=== PATIENT | female | born 1995 | race Hispanic/Latino ===

== ENCOUNTER 2017-06-04 21:38 | Emergency (ER) | payer BC ==
[~2017-06-04] VITALS: Ht 162.6 cm; Wt 68.0 kg
[2017-06-04] MEDS ORDERED: ONDANSETRON HCL INJ 2 MG/ML VIAL IV STA (22:05)
[2017-06-04] MEDS ORDERED: MORPHINE SULFATE 2 MG/ML SYR IV STA (22:05)
[2017-06-04 22:12] LABS: BILIRUBIN,URINE 1+ (NEGATIVE); COLOR,URINE YELLOW (YELLOW); KETONES,URINE NEGATIVE (NEGATIVE); LEUKOCYTE ESTERASE ,URINE NEGATIVE (NEGATIVE); NITRITE,URINE NEGATIVE (NEGATIVE); PROTEIN,URINE DIPSTICK NEGATIVE (NEGATIVE); URINE UROBILINOGEN 0.2 mg/dL (0.2 - 1)
[2017-06-04 22:13] LABS: CLARITY,URINE SL CLOUDY (CLEAR)
[2017-06-04 22:16] LABS: BASOPHILS % 0.4 % (0.0-1.0); EOSINOPHILS # (AUTO) 0.2 (0.0-0.4); EOSINOPHILS % 3.2 % (0.0-6.0); HEMATOCRIT 42.5 % (34.2-44.1); LYMPHOCYTES # (AUTO) 3.4 (1.0-3.2); LYMPHOCYTES % 59.2 % (18.0-39.1); MEAN CORPUSCULAR HEMOGLOBIN 28.7 pg (28-32); MEAN CORPUSCULAR HGB CONC 32.9 g/dL (31-35); MEAN CORPUSCULAR VOLUME 87.3 fL (81-99); MONOCYTES # (AUTO) 0.3 (0.2-0.8); MONOCYTES % 5.8 % (4.4-11.3); NEUTROPHILS # (AUTO) 1.8 (2.1-6.9); NEUTROPHILS % 31.2 % (38.7-80.0); PLATELET COUNT 229 x10e3/uL (140-360); RED BLOOD COUNT 4.87 x10e6/uL (3.6-5.1); RED CELL DISTRIBUTION WIDTH 12.5 % (11.7-14.4)
[2017-06-04] MEDS ORDERED: DIATRIZOATE MEGL/DIATRIZOA SOD 30 ML BTL PO ONE (22:16)
[2017-06-04 22:24] LABS: BACTERIA,URINE MODERATE /HPF; EPITHELIAL CELLS,URINE MODERATE /LPF; MUCUS,URINE FEW (RARE); RBC,URINE >50 /HPF (0-5); WBC,URINE (MAN) 0-5 /HPF (0-5)
[2017-06-04 22:31] LABS: ALANINE AMINOTRANSFERASE 12 IU/L (0-55); ALBUMIN 4.4 g/dL (3.5-5.0); ALKALINE PHOSPHATASE 57 IU/L (40-150); ANION GAP 16.9 mmol/L (8-16); BLOOD UREA NITROGEN 14 mg/dL (7-26); BUN/CREATININE RATIO 17 (6-25); CALCIUM 9.3 mg/dL (8.4-10.2); CARBON DIOXIDE 22 mmol/L (22-29); CHLORIDE 106 mmol/L (98-107); CREATININE, SERUM 0.81 mg/dL (0.57-1.11); EST GLOMERULAR FILTRATION RATE > 60 ML/MIN (60-); GLUCOSE 99 mg/dL (74-118); POTASSIUM 3.9 mmol/L (3.5-5.1); SODIUM 141 mmol/L (136-145)
[2017-06-04] MEDS ORDERED: SODIUM CHLORIDE 0.9% 50ML 50 ML ONE (23:40)
[2017-06-04] MEDS ORDERED: IOPAMIDOL 370 MG/ML 200 ML INFUS..BTL INJ ONE (23:40)
--- NOTE | 2017-06-04 23:42 | Diagnostic Imaging Report ---
EXAM: CT ABDOMEN/PELVIS W DATE: 06/04/2017 10:05 PM INDICATION: Right lower quadrant pain COMPARISON: 03/22/2012 TECHNIQUE: The abdomen and pelvis were scanned using a multidetector helical scanner. Coronal and sagittal reformations were obtained. Routine protocol performed. IV Contrast: 100 ml Isovue 370 FINDINGS: LOWER THORAX: No consolidations LIVER/BILIARY: No masses. No ductal dilatation. GALLBLADDER: Unremarkable SPLEEN: Unremarkable PANCREAS: Unremarkable ADRENALS: No nodules KIDNEYS: Symmetric perfusion. No enhancing masses. No hydronephrosis. GI TRACT: No wall thickening or evidence of obstruction. Normal appendix. VESSELS: Unremarkable PERITONEUM/RETROPERITONEUM: Mild pelvic free fluid, likely physiologic. LYMPH NODES: No lymphadenopathy REPRODUCTIVE ORGANS/BLADDER: IUD in place within a retroverted uterus. Mild circumferential bladder wall thickening, similar to prior. SOFT TISSUES: Unremarkable BONES: No suspicious bone lesions. IMPRESSION: 1. Mild circumferential bladder wall thickening, similar to prior. Correlate with urinalysis. 3. Otherwise no acute abnormality. No evidence of appendicitis. Signed by: Dr Anne Mckeon MD on 06/04/2017 11:39 PM
[2017-06-05 00:11] VITALS: BP 109/69
== END 2017-06-05 00:25 | disposition home or self-care (01) ==
LOC: ER 21:38
DX: R10.31 Right lower quadrant pain (principal); R11.2 Nausea with vomiting, unspecified; N94.4 Primary dysmenorrhea; N30.91 Cystitis, unspecified with hematuria
CPT/HCPCS: 36415; 74177; 80053; 81001; 84702; 85025; 87086; 99284; Q9967; J2270; J2405